=== PATIENT | female | born 1990 | race Asian ===

== ENCOUNTER 2022-04-14 09:32 | Outpatient (CLI) | payer BC | END 2022-04-14 09:33 | disposition home or self-care (01) | LOC: BICMAMMO 09:32 | PROVIDERS: ATTEND Family Medicine | DX: N63.10 Unspecified lump in the right breast, unspecified quadrant (principal); N63.20 Unspecified lump in the left breast, unspecified quadrant; R92.8 Other abnormal and inconclusive findings on diagnostic imaging of breast; N64.4 Mastodynia | CPT/HCPCS: 77066; G0279 ==